=== PATIENT | female | born 1985 | race Caucasian/White ===

== ENCOUNTER 2022-07-02 20:42 | Emergency (ER) | payer OTHER ==
[~2022-07-02] VITALS: Ht 162.6 cm; Wt 77.1 kg
[2022-07-02 22:59] VITALS: BP_SYST 150
[2022-07-03] MEDS ORDERED: FLUT16SP16 NS (00:56)
[2022-07-03 01:20] VITALS: BP_SYST 150
== END 2022-07-03 01:20 | disposition home or self-care (01) ==
LOC: SED 20:42
DX: J06.9 Acute upper respiratory infection, unspecified (principal); R05.9 Cough, unspecified; R51.9 Headache, unspecified; R09.81 Nasal congestion; Z79.899 Other long term (current) drug therapy
CPT/HCPCS: 99283